=== PATIENT | female | born 1960 | race Caucasian/White ===

== ENCOUNTER 2017-11-23 08:04 | Emergency (ER) | payer OTHER ==
[~2017-11-23] VITALS: Ht 162.6 cm; Wt 72.6 kg
[2017-11-23] MEDS ORDERED: MECLIZINE HCL25 MG PO (10:28)
[2017-11-23] MEDS ORDERED: MOTRIN600 MG PO (10:28)
[2017-11-23 11:10] VITALS: BP 158/89
== END 2017-11-23 11:18 | disposition home or self-care (01) ==
LOC: EME 08:04
DX: S06.0X0A Concussion without loss of consciousness, initial encounter (principal); R42 Dizziness and giddiness; W20.8XXA Other cause of strike by thrown, projected or falling object, initial encounter; Y93.H2 Activity, gardening and landscaping; Z86.69 Personal history of other diseases of the nervous system and sense organs; Z88.0 Allergy status to penicillin; Z91.040 Latex allergy status
CPT/HCPCS: 99281; 99285; J0780; J1200; J1885; J7120